=== PATIENT | male | born 1955 | race Two or more races ===

== ENCOUNTER → 2021-12-04 08:00 | Outpatient (CLI) | payer OTHER ==
[~2021-12-04 08:00] MED LIST: COZAAR100 MG PO; OMEPRAZOLE20 MG PO
== END | disposition home or self-care (01) ==
LOC: LAB 08:00 → ADM 08:15 → CIR.AMB 12-07 07:00 → EDSTATUS 12-07 08:15 → CIR.AMB 12-07 08:15
PROVIDERS: ATTEND Orthopaedic Surgery
DX: U07.1 COVID-19 (principal); I10 Essential (primary) hypertension; M25.511 Pain in right shoulder